=== PATIENT | female | born 1965 | race Caucasian/White ===

== ENCOUNTER 2024-06-06 14:46 | Emergency (ER) | payer OTHER, SELFPAY ==
[2024-06-06 15:01] VITALS: BP 130/83; PULSE 97; RESP 16; TEMP 36.4; O2SAT 96; BMI 33.3
[2024-06-06 15:54] LABS: Add Manual Diff / Slide Review NO; Basophils Absolute Auto 100 /uL (0-100); Basophils Percent Auto 0.8 % (0-2); Eosinophils Absolute Auto 100 /uL (0-450); Eosinophils Percent Auto 1.7 % (2-4); Hematocrit 41.3 % (36-46); Hemoglobin 13.9 g/dL (12.0-16.0); Lymphocytes Absolute Auto 2100 /uL (1100-4500); Lymphocytes Percent Auto 23.3 % (25-40); Mean Corpuscular HGB Conc 33.7 % (30-36); Mean Corpuscular Hemoglobin 30.8 PG (26-34); Mean Corpuscular Volume 91.3 fL (80-100); Monocytes Absolute Auto 700 /uL (0-900); Monocytes Percent Auto 8.1 % (3-14); Neutrophils Absolute Auto 5800 /uL (1500-7000); Neutrophils Percent Auto 66.1 % (50-75); Platelet Count 265 X10^3/uL (150-400); Red Blood Cell Count 4.52 X10^6/uL (4.0-5.2); Red Cell Distribution Width 15.7 % (11.6-14.8); White Blood Cell Count 8.8 X10^3/uL (4.5-11.0)
[2024-06-06 16:05] LABS: Acetaminophen < 10 ug/mL (10-30); Alanine Aminotransferase 30 IU/L (<35); Albumin 4.1 g/dL (3.5-5.0); Albumin Globulin Ratio 1.2 (1.0-2.8); Alkaline Phosphatase 48 U/L (38-126); Aspartate Aminotransferase 40 IU/L (14-36); BUN Creatinine Ratio 18.3 (6-22); Bilirubin Total 0.6 mg/dL (0.2-1.3); Blood Urea Nitrogen 15 mg/dL (7-17); Calcium 8.7 mg/dL (8.4-10.2); Carbon Dioxide 22 mmol/L (22-32); Chloride 108 mmol/L (98-107); Estimated Glomerular Filt Rate > 60 mL/min (>60); Ethanol (ETOH) < 10 mg/dL; Globulin 3.3 g/dL (1.7-4.1); Glucose 88 mg/dL (70-100); Salicylate < 1.0 mg/dL (<20); Sodium 138 mmol/L (137-145); Total Protein 7.4 g/dL (6.3-8.2)
[2024-06-06 16:06] LABS: HEMOLYSIS 80 (0-50); Potassium 4.3 mmol/L (3.4-5.1)
[2024-06-06 16:26] LABS: Free T4, Direct Thyroxine 0.79 ng/dL (0.78-2.19)
[2024-06-06 16:40] LABS: Thyroid Stimulating Hormone 0.657 uIU/mL (0.47-4.68)
--- NOTE | 2024-06-06 17:12 | ED.PSYCH ---
HPI - Psych General Chief Complaint: Psychiatric Symptoms Stated Complaint: Mental Health Time Seen by Provider: 06/06/24 17:08 Source: patient and family Mode of arrival: Ambulatory History of Present Illness HPI Narrative: Patient 59-year-old female history of DVT for unknown reason finish Eliquis about 1 month ago, depression, intermittent methamphetamine use presenting today with just feeling. She is visiting her fiance from [place] they arrived about 1 week ago they are supposed to be here for another 2 weeks. She just seems disoriented not quite herself can not really put her finger on it. No headache nausea vomiting numbness tingling or weakness. No real suicidal or homicidal ideations. She has been evaluated spoke with social work prior to my evaluation. She has been interviewed independently reports that Related Data Home Medications Medication Instructions Recorded Confirmed amitriptyline 25 mg tablet 75 mg PO ONCE PM 06/06/24 06/06/24 clonidine HCl 0.1 mg tablet 0.1 mg PO DAILY 06/06/24 06/06/24 donepezil 10 mg tablet 10 mg PO QPM 06/06/24 06/06/24 estradiol 2 mg tablet 2 mg PO DAILY 06/06/24 06/06/24 estradiol 2 mg tablet 2 mg PO DAILY 06/06/24 06/06/24 hydrochlorothiazide 12.5 mg tablet 12.5 mg PO DAILY 06/06/24 06/06/24 ketamine 100 mg sublingual octavia See Rx Instructions .Route .COMPLEX 06/06/24 06/06/24 potassium chloride 10 mEq 10 meq PO DAILY 06/06/24 06/06/24 capsule,extended release quetiapine 300 mg tablet 300 mg PO DAILY 06/06/24 06/06/24 Allergies Allergy/AdvReac Type Severity Reaction Status Date / Time No Known Drug Allergies Allergy Verified 06/06/24 15:01 Patient History Social History Smoking Status: Never smoker Smoking Status: Never smoker Substance Use Type: former substance user Exam Initial Vital Signs Initial Vital Signs: Vital Signs Temperature 97.6 F 06/06/24 15:01 Pulse Rate 97 H 06/06/24 15:01 Respiratory Rate 16 06/06/24 15:01 Blood Pressure 130/83 06/06/24 15:01 Pulse Oximetry 96 06/06/24 15:01 Oxygen Delivery Method Room Air 06/06/24 15:01 GENERAL: Well-appearing, well-nourished and in no acute distress. CARDIOVASCULAR: peripheral pulses in tact, cap refill <2 sec RESPIRATORY: No respiratory distress, speaks in full sentences without difficulty EXTREMITIES: Normal range of motion, no clubbing or edema. Neurovascularly intact NEUROLOGICAL: Cranial nerves II through XII grossly intact. Normal gait and speech. SKIN: Warm, dry, no petechiae, no rashes or lesions. Course Orders Ordered: ED Orders 06/06/24 14:51 Consult to [employer]EL FRONT DESK CLERK - Learning Disabilities Resource Teacher Stat 06/06/24 15:40 Acetaminophen Stat Complete Blood Count AUTO DIFF Stat Comprehensive Metabolic Panel Stat Ethanol (ETOH) Stat Free T4, Direct Thyroxine Stat MG [Magnesium] Stat Salicylate Stat Thyroid Stimulating Hormone Stat 06/06/24 17:07 Urine Drug Screen, Rapid Stat Urine Microscopic Stat 06/06/24 18:16 COVID19 -Nasal RAPID Stat Discontinued Medications Lorazepam (Lorazepam 0.5 Mg Tablet) 1 mg PO NOW ONE Stop: 06/06/24 18:36 Last Admin: 06/06/24 18:42 Dose: 1 mg Documented By: VALERIA Vital Signs Vital signs: Vital Signs - 8 hr 06/06/24 15:01 06/06/24 18:50 Temperature 97.6 F Pulse Rate 97 H 91 H Respiratory Rate 16 19 Blood Pressure 130/83 172/105 H Pulse Oximetry 96 99 Oxygen Delivery Method Room Air Room Air MDM - Psych Lab Data 06/06/24 15:40 06/06/24 15:40 Labs: Lab Results 06/06/24 06/06/24 06/06/24 Range/Units 15:40 17:07 18:16 WBC 8.8 (4.5-11.0) X10^3/uL RBC 4.52 (4.0-5.2) X10^6/uL Hgb 13.9 (12.0-16.0) g/dL Hct 41.3 (36-46) % MCV 91.3 (80-100) fL MCH 30.8 (26-34) PG MCHC 33.7 (30-36) % RDW 15.7 H (11.6-14.8) % Plt Count 265 (150-400) X10^3/uL Neut % (Auto) 66.1 (50-75) % Lymph % (Auto) 23.3 L (25-40) % [facility] % (Auto) 8.1 (3-14) % Eos % (Auto) 1.7 L (2-4) % Baso % (Auto) 0.8 (0-2) % Neut # (Auto) 5800 (2526-9192) /uL Lymph # (Auto) 2100 (1857-9140) /uL [facility] [place] # (Auto) 700 (0-900) /uL Eos # (Auto) 100 (0-450) /uL Baso # (Auto) 100 (0-100) /uL Sodium 138 (137-145) mmol/L Potassium 4.3 (3.4-5.1) mmol/L Chloride 108 H (98-107) mmol/L Carbon Dioxide 22 (22-32) mmol/L BUN 15 (7-17) mg/dL Creatinine 0.82 (0.52-1.04) mg/dL Estimated GFR > 60 (>60) mL/min BUN/Creatinine Ratio 18.3 (6-22) Glucose 88 (70-100) mg/dL Calcium 8.7 (8.4-10.2) mg/dL Magnesium 1.8 (1.6-2.3) mg/dL Total Bilirubin 0.6 (0.2-1.3) mg/dL AST 40 H (14-36) IU/L ALT 30 (<35) IU/L Alkaline Phosphatase 48 (38-126) U/L Total Protein 7.4 (6.3-8.2) g/dL Albumin 4.1 (3.5-5.0) g/dL Globulin 3.3 (1.7-4.1) g/dL Albumin/Globulin Ratio 1.2 (1.0-2.8) TSH 0.657 (0.47-4.68) uIU/mL Free T4 0.79 (0.78-2.19) ng/dL Urine RBC 0-1/hpf (0-5/HPF) Urine WBC 0-1/hpf (0-5/HPF) Ur Squamous Epith Cells 10-30 /hpf H (0-5/HPF) Urine Bacteria Moderate (10-30) H (None) Ur Culture Indicated? Cult not indicated Vol Urine Centrifuged 10ml (spun) Salicylates < 1.0 (<20) mg/dL U Opiates 300ng/mL cut Negative (Negative) Ur Oxycodone Screen Negative (Negative) Urine Methadone Screen Negative (Negative) Acetaminophen < 10 (10-30) ug/mL Ur Barbiturates Screen Negative (Negative) U Tricyclic Antidepress Positive H (Negative) Ur Phencyclidine Scrn Negative (Negative) Ur Amphetamines Screen Negative (Negative) U Methamphetamines Scrn Negative (Negative) Ur MDMA Scrn (Ecstasy) Negative (Negative) U Benzodiazepines Scrn Positive H (Negative) Urine Cocaine Screen Negative (Negative) U Marijuana (THC) Screen Negative (Negative) Urine pH Normal (Normal) Urine Specific [place] Normal (Normal) Ethyl Alcohol < 10 ( - 10) mg/dL Ur Creatinine Normal (Normal) SARS-CoV-2 (PCR) Negative (Negative) Urine Dip Bedside Urine Glucose Negative Bedside Urine Bilirubin - Negative Bedside Urine Ketone - Negative Urine Specific [place] 1.025 Bedside Urine Occult Blood - Negative Bedside Urine pH 6.0 Bedside Urine Protein +/- 15 Bedside Urine Urobilinogen - Negative Bedside Urine Nitrite - Negative Bedside Urine Leukocytes - Negative Esterase MDM Narrative Medical decision making narrative: Patient 59-year-old female history of depression presenting today with just not feeling right. It sounds that this is chronic and ongoing for awhile currently traveling out of state. She does not have suicidal homicidal ideations. I did discuss with patient alone if she feels safe which she reports she does. Blood work has been reviewed without any significant abnormalities drug screen is positive for benzos which she is on Discussion with patient and partner about options. At this time she does not meet any sort of involuntary criteria. She initially was willing and wanting to go to facility however due to out of state insurance facilities will not accept her Discharge Plan Departure Patient Disposition: Home Clinical Impression: Depression Instructions: Depression Activity Restrictions/Additional Instructions: *You have been diagnosed with depression *What to do: At this time I do recommend that you get mental health help may need to be back in [place]. I hope that just simple medication adjustment hope you feel your self again *Continue to take medications as directed *Follow up with your primary care provider in 2-3 days or call [phone] *Return to ER if you should have any new, worsening or concerning symptoms Prescriptions: No Action amitriptyline 25 mg tablet 75 mg PO ONCE PM clonidine HCl 0.1 mg tablet 0.1 mg PO DAILY estradiol 2 mg tablet 2 mg PO DAILY quetiapine 300 mg tablet 300 mg PO DAILY donepezil 10 mg tablet 10 mg PO QPM potassium chloride 10 mEq capsule, extended release 10 meq PO DAILY estradiol 2 mg tablet 2 mg PO DAILY hydrochlorothiazide 12.5 mg tablet 12.5 mg PO DAILY ketamine 100 mg Octavia See Rx Instructions .ROUTE .COMPLEX Rx Instructions: 100 mg sublingually twice per week Referrals: Miscellaneous,Doctor, MD [Primary Care Provider] - Stand Alone Forms: Patient Portal/API
[2024-06-06 17:23] LABS: UR Morphine/Opiate cutoff 300 Negative (Negative); Ur Creatinine Normal (Normal); Ur Specific Gravity Normal (Normal); Urine Amphetamines Negative (Negative); Urine Barbiturates Negative (Negative); Urine Benzodiazepines Positive (Negative); Urine Cocaine Negative (Negative); Urine MDMA Negative (Negative); Urine Methadone Negative (Negative); Urine Methamphetamines Negative (Negative); Urine Oxycodone Negative (Negative); Urine Phencyclidine Negative (Negative); Urine Tetrahydrocannabinol Negative (Negative); Urine Tricyclic Antidepressant Positive (Negative); Urine pH Normal (Normal)
--- NOTE | 2024-06-06 17:39 | CM.SWNOTE ---
Addendum entered by ODETTE Draper 06/06/24 18:05: Patient was assessed by ED provider and discussed medication stabilization. Patient expressed interest in voluntary treatment for medication stabilization and intervention. ED PLASTER PATTERNMAKER to conduct bed search and send packet for review. Original Note: ED PLASTER PATTERNMAKER Assessment Note: PLASTER PATTERNMAKER - Radio Reporter Assessment PLASTER PATTERNMAKER/Radio Reporter Assessment Time Spent with Patient Start date 06/06/24 Visit Start Time 16:15 End date 06/06/24 Visit End Time 16:30 Total time Care Management spent on 15 minutes patient visit-in minutes Mental Health Screening Include Onset, Duration, Intensity Presenting Problem Patient presented to the ED stating she is depressed. Patient reports passive SI but none today. Patient reports that her fiance is the one who urged patient to come to ED but could not elaborate why. Patient denies any recent stressors or precipitating events that could explain this presentation other than, I have been depressed. Patient explains she has been depressed for a couple of weeks. Precipitating Event(s) Patient reports she is taking seroquel, amitriptiline and estrogen. Patient was not clear if she has been taking her medications. Patient and fiance are visiting from [place], they are staying with a friend who lives on [facility]. Per patient, she was preparing to drive back to [place] tomorrow. They have been visiting for the past five days. During triage, patient's fiance states patient has been confused. Patient Strengths Patient is supported by her fiance, Timur Mejia, who assisted patient go come to the ED today. Current Behavioral Health Provider(s) Patient states she has a MH Include Facility, Provider, Ph. # provider in [place] but can't remember her name right now. Per garfield, pt's MH provider is at [facility] (ph#[phone]). Psych. Hx Mental Health and Chemical Per collective medical, Dependency patient has a previous hx of generalized anxiety disorder and unspecified bipolar disorder. Family Hx of Behavioral Abuse None reported. When asked about relationship with ficlaudia , patient became tearful but stated she felt safe with him and denied any abuse. Psychiatric Hospitalizations (date(s)/ [facility] did not location) identify any previous hospitalizations. Per patient, she has had a couple of psych hospitalizations but none in this year. Patient would not elaborate further. Psychosocial information & Support Patient is a 59yo female, Systems resident of [place], visiting a friend on [facility] with her garfield and their dog. Patient explains her dog is her service animal for comfort but it is evident that her dog is not trained or certified to provide a medical service for patient. School/Work None reported. Substance Abuse Screening Include Onset, Duration, Intensity Presenting Problem Per garfield, pt has intermittently utilized methamphetamines before and after meeting one another about 5 years ago. Per garfield, She says she has cravings sometimes. She uses it once and then doesn't use it for a year then uses again and then she uses it 6 months later. Marcyclaudia reports patient utilized methamphetamine about 6 weeks ago. Legal Concerns Legal Matters - Outstanding Issues None reported. Mental Status Orientation (Person/Place/Time) AOx3 Stated Mood depressed Affect (Congruent with Mood?) Incongruent with mood, flat, dysthymic. Thought Content - Specify/Describe None reported. Obsessions, Delusions, Hallucinations Thought Processes (Jhujcdg-Caukchwz-Arrv Thought blocking, directed. Npqxdtnq-Ytyqcskk-Advvbqlztq- Kmocecatadhdqo-Xyloehb-Qspxrxucrzsb- Thought Blocking) Speech (Ynhrch-Gmki-Ugeedyf-Rapid-Soft- Slow, soft. Loud-Pressured) Motor (Lptawm-Jfhcnrxxh-Kfoz-Other) Slow. Insight (Vnge-Rqvm-Ywuw/Limited) Poor/limited. Judgement (Xdec-Abge-Kqzc/Limited) Fair/limited. Impulse Control (Adequate-Impaired) Adequate. Memory (Cwvssgnyr-Zekowo-Mjeuwe, Remote, impaired. Impaired-Intact) Concentration (Intact-Impaired) Intact. Attention (Intact-Impaired) Intact. Behavior (Appropriate-Inappropriate) Appropriate. Additional Comment Patient is calm, cooperative during assessment. Patient exhibits anhedonia, apathy and had difficulty identifying personal preferences/answers. Per garfield, patient is not at baseline and has been in a funk for the past month. Marcyclaudia believed a trip to see her best friend on [facility] might assist patient's mood but she is still exhibiting a flat affect. Patient's friend whom she is visiting also expressed concern with garfield who urged patient to present to the ED today. Risk Assessment Suicidal Ideation (Plan) Yes: Passive, no plan. Homicidal Ideation (Plan) No Comment Patient expresses having passive SI in the last few weeks but no intent, plan or thoughts today. Patient denies HI. Patient reports having previous suicide attempt but would not elaborate further, confirms it was not in the last few years. Per patient fiance, pt has had a suicide attempt in the past but believes it was about 10 years ago. Intervention Intervention PLASTER PATTERNMAKER meets with patient. Patient reports depression that she has been experiencing a couple of a weeks. Patient denies a need for inpatient treatment and expresses she is hopeful to return to [place] tomorrow via POV. PLASTER PATTERNMAKER spoke with patient's fiance privately at his request. He reports patient has intermittent methamphetamine use and her last use was 6 weeks ago. Per fiance, she has not come back from it. She is usually witty and happy but she has been non-functional for the past month. Patient's fiance was able to confirm pt history and explained she has been taking her medications everyday, he witnesses. Patient's fiance explains patient sleeps for 15hours or more a day. At this time, it is the opinion of this PLASTER PATTERNMAKER that patient would benefit from continued mental health counseling and medication intervention with her PCP; continued support from family. Patient would also benefit from follow up calls from the Mobile Crisis Outreach Team until she can get back to her MH Provider. PLASTER PATTERNMAKER informs ED provider, Dr. Hudson, who indicates agreement. PLASTER PATTERNMAKER informs [facility] . Plan RA Plan Pending medical clearance and provider assessment. Anticipating discharge with fiance and follow up with PCP and MH Providers. Pt and fiance to be provided with crisis contacts and follow up with [facility] if agreeable. SARAH Main
[2024-06-06 17:46] LABS: Bacteria Urine Moderate (10-30); Culture Indicated Urine Cult Not Indicated; RBC Urine 0-1/HPF (0-5/HPF); Squamous Epithelial Cell Urine 10-30 /HPF (0-5/HPF); Urine Volume 10mL (spun); WBC Urine 0-1/HPF (0-5/HPF)
[2024-06-06 18:33] LABS: Magnesium 1.8 mg/dL (1.6-2.3)
[2024-06-06 18:38] LABS: COVID19 -Nasal RAPID Negative (Negative)
--- NOTE | 2024-06-06 18:39 | CM.SWNOTE ---
ED STOCK LAYER Note: ED STOCK LAYER initiated bed search for inpatient BH treatment. STOCK LAYER calls [facility] , it was reported that there are no beds available tonight due to staffing but could review for tomorrow. STOCK LAYER calls [facility] , it was reported that there are no voluntary beds available. STOCK LAYER calls [facility], it was reported that there are beds available and to send a packet for review. STOCK LAYER calls [facility], it was reported that there are beds available for patient, STOCK LAYER conducted a phone screening. It was later revealed by [facility] intake that patient's insurance could not be accepted ([place] Medicaid) and patient would be given a substantial hospital bill. ED STOCK LAYER reviewed the above with patient and fiance, patient able to contract for safety and requests to start trip back to [place] where PCP and MH Provider are accessible. Patient agreeable to [facility] calls at 6pm for the next two days while she transports back to [place]. Requested to give a different phone number: [phone] for phone calls. ED STOCK LAYER provided handout for [facility] and crisis contacts. Patient and fiance appreciative. Plan: Patient to discharge with fiance to transport, will follow up with [facility] and PCP in [place] as soon as possible. [facility] calls requested for the next two nights at around 6pm. SARAH Main
[2024-06-06] MEDS: LORazepam 0.5 MG TABLET 1 MG PO (18:42)
[2024-06-06 18:50] VITALS: BP 172/105; PULSE 91; RESP 19; O2SAT 99
--- NOTE | 2024-06-06 18:50 | PC.NURSE ---
patient reports anxiety, will take BP meds when she gets home. Dr. Hudson aware of hypertension.
== END 2024-06-06 18:55 | disposition home or self-care (01) ==
PROVIDERS: Emergency Medicine; Emergency Provider Emergency Medicine
DX: F32.A Depression, unspecified (principal); Z11.52 Encounter for screening for COVID-19
CPT/HCPCS: 36415; 80053; 80305; 80320; 80329; 81003; 81015; 83735; 84439; 84443; 85025; 87635; 99284; G0480